=== PATIENT | male | born 1995 | race African-American/Black ===

== ENCOUNTER 2023-02-03 03:07 | Emergency (ER) | payer OTHER, SELFPAY ==
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
[2023-02-03 03:17] VITALS: BP 136/78; PULSE 66; RESP 18; TEMP 36.7; O2SAT 99; BMI 28.0
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
[2023-02-03 05:18] VITALS: RESP 20
== END 2023-02-03 05:37 | disposition home or self-care (01) ==
PROVIDERS: Emergency Provider Emergency Medicine Emergency Medical Services
DX: S43.402A Unspecified sprain of left shoulder joint, initial encounter (principal); V47.5XXA Car driver injured in collision with fixed or stationary object in traffic accident, initial encounter; X37.2XXA Blizzard (snow)(ice), initial encounter; Y93.89 Activity, other specified; Y92.410 Unspecified street and highway as the place of occurrence of the external cause; Y99.0 Civilian activity done for income or pay
CPT/HCPCS: 73030; 99283; 99284